=== PATIENT | male | born 1975 | race Caucasian/White ===

== ENCOUNTER → 2023-09-23 12:41 | Outpatient (CLI) | payer BC, SELFPAY | PROVIDERS: Visit Provider Physician Assistant Surgical | DX: Z72.53 High risk bisexual behavior (principal); R30.0 Dysuria | CPT/HCPCS: 87086; 87210 ==

== ENCOUNTER → 2023-09-23 13:17 | Outpatient (CLI) | payer BC, SELFPAY ==
[2023-09-23 14:56] LABS: Hepatitis B Surface Antigen NEGATIVE s/c (NEGATIVE)
[2023-09-23 15:04] LABS: HIV 1 & 2 Ab/Ag 4th Gen Combo NEGATIVE (NEGATIVE); Hep C Virus Ab w/Reflex Quant NEGATIVE s/c (NEGATIVE)
[2023-09-24 12:10] LABS: HSV 2 IGG AB < 0.91 index (0.00-0.90); HSV1IGG 2.76 index (0.00-0.90)
== END ==
PROVIDERS: Referring Provider Physician Assistant Surgical; Visit Provider Physician Assistant Surgical
DX: Z20.2 Contact with and (suspected) exposure to infections with a predominantly sexual mode of transmission (principal); Z72.53 High risk bisexual behavior; R30.0 Dysuria
CPT/HCPCS: 36415; 86592; 86695; 86696; 86803; 87086; 87210; 87340; 87389

== ENCOUNTER → 2023-09-26 14:01 | Outpatient (CLI) | payer OTHER, SELFPAY ==
[2023-09-26 16:01] LABS: Urine N gonorrhoeae NOT DETECTED
[2023-09-26 16:06] LABS: Urine Chlamydia NOT DETECTED
== END ==
PROVIDERS: Referring Provider Physician Assistant Surgical; Visit Provider Physician Assistant Surgical
DX: Z72.53 High risk bisexual behavior (principal)
CPT/HCPCS: 87491; 87591